=== PATIENT | female | born 1940 | race Hispanic/Latino ===

== ENCOUNTER 2017-09-20 08:00 | Emergency (ER) | payer MEDICARE, OTHER ==
[2017-09-20 08:05] VITALS: BP 150/80; RESP 18; TEMP 97.9
[2017-09-20 08:12] VITALS: BMI 27.4
[2017-09-20] MEDS ORDERED: Lidocaine 5% Patch TD STA (08:38)
--- NOTE | 2017-09-20 08:52 | ED PDOC ---
Arrival/HPI - General Chief Complaint: Back Pain Time Seen by Provider: 09/20/17 08:14 Historian: Patient - History of Present Illness Narrative History of Present Illness (Text): 09/20/17 08:40 77 year old female, whose PMH includes arthritis and ulcers, who presents to the emergency department complaining of right lower back pain for a couple of days. Patient reports this morning when standing up, she felt a sharp pain that radiated down her right leg, associated with difficulty ambulating. Patient denies numbness, tingling, dysuria, hematuria, or other complaints. Time/Duration: < week Symptom Onset: Gradual Symptom Course: Worsening Quality: Other (sharp) Activities at Onset: Light Context: Standing, Home Past Medical History - Provider Review Nursing Documentation Reviewed: Yes - Infectious Disease Hx of Infectious Diseases: None - Tetanus Immunization Tetanus Immunization: Unknown - Reproductive Menopause: Yes - Cardiac Hx Cardiac Disorders: No - Pulmonary Hx Respiratory Disorders: No - Neurological Hx Neurological Disorder: No - HEENT Hx HEENT Disorder: No Hx Cataracts: Yes (bilat cataract removal) - Renal Hx Renal Disorder: No - Endocrine/Metabolic Hx Endocrine Disorders: No - Hematological/Oncological Hx Blood Disorders: No - Integumentary Hx Dermatological Disorder: No - Musculoskeletal/Rheumatological Hx Musculoskeletal Disorders: No Hx Falls: No - Gastrointestinal Hx Gastrointestinal Disorders: No - Genitourinary/Gynecological Hx Genitourinary Disorders: No - Psychiatric Hx Psychophysiologic Disorder: No Hx Substance Use: No - Surgical History Hx Appendectomy: Yes Hx Cholecystectomy: Yes - Anesthesia Hx Anesthesia: Yes Hx Anesthesia Reactions: No Hx Malignant Hyperthermia: No - Suicidal Assessment Feels Threatened In Home Enviroment: No Family/Social History - Physician Review Nursing Documentation Reviewed: Yes Family/Social History: Unknown Family HX Smoking Status: Never Smoked Hx Alcohol Use: No Hx Substance Use: No Hx Substance Use Treatment: No Allergies/Home Meds Allergies/Adverse Reactions: Allergies No Known Allergies Allergy (Verified 06/27/15 09:08) Review of Systems - Physician Review All systems were reviewed & negative as marked: Yes - Review of Systems Constitutional: absent: Fevers Gastrointestinal: absent: Abdominal Pain Musculoskeletal: Back Pain (right lower back pain radiates to right leg) Physical Exam Vital Signs Reviewed: Yes Vital Signs Temp Pulse Resp BP Pulse Ox 09/20/17 16:03 94 H 18 97 09/20/17 08:04 97.9 F 84 18 150/80 96 Temperature: Afebrile Blood Pressure: Normal Pulse: Regular Respiratory Rate: Normal Appearance: Positive for: Well-Appearing, Non-Toxic, Comfortable Pain Distress: None Mental Status: Positive for: Alert and Oriented X 3 - Systems Exam Head: Present: Atraumatic, Normocephalic Pupils: Present: PERRL Extroacular Muscles: Present: EOMI Conjunctiva: Present: Normal Back: Present: Paraspinal Tenderness (L5 - Sacral right muscle tenderness). No : Midline Tenderness, Pain with Leg Raise Upper Extremity: Present: Normal Inspection, Normal ROM, Neurovascularly Intact. No: Cyanosis, Edema Lower Extremity: Present: Normal Inspection, NORMAL PULSES, Normal ROM, Neurovascularly Intact, Capillary Refill < 2 s. No: Edema, Swelling Neurological: Present: GCS=15, CN II-XII Intact, Speech Normal, Motor Func Grossly Intact, Normal Sensory Function Skin: Present: Warm, Dry, Normal Color. No: Rashes Psychiatric: Present: Alert, Oriented x 3, Normal Insight, Normal Concentration Medical Decision Making ED Course and Treatment: 09/20/17 Impression: 77 year old female with tenderness on L5 sacral right muscle complaining of right lower back pain radiating to right leg. Differential Diagnosis included but are not limited to: Muscle strain Plan: -- Tylenol, Flexeril, Lidoderm, and Toradol -- Reassess and disposition Progress Notes: 09/20/17 10:44 Patient improved only mildly with mediations. Added Morphine and Dexamethasone. Will reevaluate and disposition. 09/20/17 16:09 Patient rested comfortably for some time in the ED. She was able to sit up and walk with no complications. She feels a little sore but her pain has resolved. She denies any numbness or weakness. She will be discharge home with close PMD f /u. Rx Medrol dose pack, tylenol, flexeril and lidocaine patches. - Medication Orders Current Medication Orders: Discontinued Medications Acetaminophen (Tylenol 325mg Tab) 975 mg PO STAT STA Stop: 09/20/17 08:39 Last Admin: 09/20/17 09:02 Dose: 975 mg MAR Pain/Vitals Document 09/20/17 09:02 [facility] (Rec: 09/20/17 09:02 [facility] [id number]) Pain Reassessment Is This A Pain ReAssessment? No Re-Assess: MAR Pain/Vitals Document 09/20/17 10:02 [facility] (Rec: 09/20/17 10:22 [facility] [id number]) Pain Reassessment Is This A Pain ReAssessment? No Presence of Pain Presence of Pain Yes Cyclobenzaprine HCl (Flexeril) 5 mg PO STAT STA Stop: 09/20/17 08:39 Last Admin: 09/20/17 09:02 Dose: 5 mg Dexamethasone (Decadron Inj) 8 mg IM STAT STA Stop: 09/20/17 10:23 Last Admin: 09/20/17 10:36 Dose: 8 mg IM Administration Charges Document 09/20/17 10:36 [facility] (Rec: 09/20/17 10:36 [facility] [id number]) Injection Site MAR Injection Site Left Deltoid Charges for Administration # of IM Administrations 1 Ketorolac Tromethamine (Toradol) 30 mg IM STAT STA Stop: 09/20/17 08:41 Last Admin: 09/20/17 09:02 Dose: 30 mg MAR Pain Assessment Document 09/20/17 09:02 [facility] (Rec: 09/20/17 09:02 [facility] [id number]) Pain Reassessment Is this a pain reassessment? No IM Administration Charges Document 09/20/17 09:02 [facility] (Rec: 09/20/17 09:02 [facility] [id number]) Injection Site MAR Injection Site Left Deltoid Charges for Administration # of IM Administrations 1 Re-Assess: MAR Pain Assessment Document 09/20/17 10:02 [facility] (Rec: 09/20/17 10:22 [facility] [id number]) Pain Reassessment Is this a pain reassessment? Yes Presence of Pain Presence of Pain Yes Lidocaine (Lidoderm) 1 ea TD STAT STA Stop: 09/20/17 08:39 Last Admin: 09/20/17 09:01 Dose: 1 ea MAR Transdermal Patch Site Document 09/20/17 09:01 [facility] (Rec: 09/20/17 09:01 [facility] [id number]) Transdermal Patch Site Transdermal Patch Site Right Lower Back Morphine Sulfate (Morphine) 4 mg IM STAT STA Stop: 09/20/17 10:18 Last Admin: 09/20/17 10:35 Dose: 4 mg MAR Pain Assessment Document 09/20/17 10:35 [facility] (Rec: 09/20/17 10:35 [facility] [id number]) Pain Reassessment Is this a pain reassessment? No IM Administration Charges Document 09/20/17 10:35 [facility] (Rec: 09/20/17 10:35 [facility] [id number]) Injection Site MAR Injection Site Right Arm Charges for Administration # of IM Administrations 1 - Scribe Statement The provider has reviewed the documentation as recorded by the Amy Em Provider Scribe Attestation: All medical record entries made by the Scribe were at my direction and personally dictated by me. I have reviewed the chart and agree that the record accurately reflects my personal performance of the history, physical exam, medical decision making, and the department course for this patient. I have also personally directed, reviewed, and agree with the discharge instructions and disposition. Disposition/Present on Arrival - Present on Arrival Any Indicators Present on Arrival: No History of DVT/PE: No History of Uncontrolled Diabetes: No Urinary Catheter: No History of Decub. Ulcer: No History Surgical Site Infection Following: None - Disposition Have Diagnosis and Disposition been Completed?: Yes Diagnosis: Back pain Disposition: HOME/ ROUTINE Disposition Time: 16:00 Patient Plan: Discharge Condition: IMPROVED Discharge Instructions (ExitCare): Lumbar Muscle Strain Additional Instructions: Ms Kiser, thank you for letting us take care of you today. Your provider was Dr. Meyer. You were treated for Back Spasm. The emergency medical care you received today was directed at your acute symptoms. If you were prescribed any medication, please fill it and take as directed. It may take several days for your symptoms to resolve. Return to the Emergency Department if your symptoms worsen, do not improve, or if you have any other problems. Please contact your doctor or call one of the physicians/clinics you have been referred to that are listed on the Patient Visit Information form that is included in your discharge packet. Bring any paperwork you were given at discharge with you along with any medications you are taking to your follow up visit. Our treatment cannot replace ongoing medical care by a primary care provider (PCP) outside of the emergency department. Thank you for allowing the [facility] team to be part of your care today. If you had an X-Ray or CT scan: A Radiologist will review the ED reading if any change in treatment is needed we will contact you. If you had a blood, urine, or wound culture: It will take several days for the results, if any change in treatment is needed we will contact you. If you had an STI test: It will take 48 hours for the results. Please call after 1 week if you have not heard back. Prescriptions: Acetaminophen [Tylenol 325mg tab] 650 mg PO Q4 #60 tab Cyclobenzaprine [Flexeril] 5 mg PO TID PRN #20 tab PRN Reason: Muscle Spasm Lidocaine 5% [Lidoderm] 1 ea TD DAILY PRN #4 patch PRN Reason: Pain, Moderate (4-7) Methylprednisolone [Medrol Dose Pack (21 tabs)] 4 mg PO DAILY #21 mg Referrals: Rolando Monique MD [Staff Provider] - Follow up with primary Forms: [employer] ([place]), WORK NOTE
[2017-09-20] MEDS ORDERED: Morphine 4 mg/ml ISec IM STA (10:17)
[2017-09-20] MEDS ORDERED: Dexamethasone 4 mg/1 ml IVP STA (10:17)
[2017-09-20 16:04] VITALS: PULSE 94; O2SAT 97
== END 2017-09-20 16:04 | disposition home or self-care (01) ==
LOC: ED 08:00
DX: M54.5 Low back pain (principal)
CPT/HCPCS: 96372; 99283; J1100; J1885; J2270